=== PATIENT | male | born 1990 | race African-American/Black ===

== ENCOUNTER 2017-06-06 12:06 | Emergency (ER) | payer OTHER ==
[~2017-06-06] VITALS: Ht 182.9 cm; Wt 83.0 kg
--- NOTE | 2017-06-06 13:07 | Emergency Room Report ---
History of Present Illness General Chief Complaint: Upper Respiratory Illness Source: Patient Present Illness HPI 27-year-old male presents to the emergency department complaining of nasal congestion, rhinorrhea, intermittent cough, sore throat x2 days denies fevers or chills. Patient reports several children as ill contacts. Patient denies neck pain or stiffness reports frontal sinus headache described as increased pressure. Patient also reports 9/10 in severity right year tenderness and pain patient states onset was after taking bath last night. Patient denies discharge. Denies rash or abdominal pain Denies CP, Palpitations, LOC, AMS, dizziness, Changes in Vision, Sensation, paresthesias, or a sudden severe headache. Allergies: Coded Allergies: No Known Allergies (Unverified , 06/06/17) Patient History Past Medical History: see triage record Past Surgical History: none Pertinent Family History: none Immunizations: UTD Reviewed Nursing Documentation: PMH: Agreed, PSxH: Agreed Nursing Documentation-PMH Past Medical History: No Stated History Review of Systems All Other Systems: negative except mentioned in HPI Physical Exam Vital Signs Date Time Temp Pulse Resp B/P (MAP) Pulse Ox O2 Delivery O2 Flow Rate FiO2 06/06/17 12:32 98.8 88 16 120/70 98 Room Air Sp02 EP Interpretation: reviewed, normal General Appearance: no apparent distress, alert, GCS 15, non-toxic Head: normocephalic, atraumatic Eyes: bilateral eye normal inspection, bilateral eye PERRL ENT: hearing grossly normal, normal pharynx, no angioedema, normal voice, uvula midline, moist mucus membranes, nasal congestion, pharyngeal erythema, other - no tonsillar exudates, right extrnal ear tenderness with canal swelling and erythema, the TM is WNL. Neck: full range of motion, no meningismus, no bony tend, supple/symm/no masses Respiratory: chest non-tender, lungs clear, normal breath sounds, speaking full sentences Cardiovascular #1: regular rate, rhythm Gastrointestinal: non tender, soft Musculoskeletal: back normal, gait/station normal, normal range of motion Neurologic: alert, oriented x3, responsive, motor strength/tone normal, sensory intact, normal gait, speech normal Psychiatric: judgement/insight normal, memory normal, mood/affect normal Skin: normal color, no rash, warm/dry, well hydrated Lymphatic: no adenopathy Medical Decision Making PA Attestation Dr. Whittaker is my supervising Physician whom patient management has been discussed with. Diagnostic Impression: Primary Impression: Otitis externa of right ear Qualified Codes: H60.501 - Unspecified acute noninfective otitis externa, right ear Additional Impression: Cough in adult patient ER Course 27-year-old male presents to the emergency department complaining of nasal congestion, rhinorrhea, intermittent cough, sore throat x2 days denies fevers or chills. Patient reports several children as ill contacts. Patient denies neck pain or stiffness reports frontal sinus headache described as increased pressure. Patient also reports 9/10 in severity right year tenderness and pain patient states onset was after taking bath last night. Patient denies discharge. Denies rash or abdominal pain Denies CP, Palpitations, LOC, AMS, dizziness, Changes in Vision, Sensation, paresthesias, or a sudden severe headache. Ddx considered but are not limited to URI, pneumonia, PE, strep pharyngitis, meningitis. Vital signs: Pt. is afebrile, the remaining VS are WNL H&PE are most consistent with URI- no meningeal signs, oropharynx is not involved, no evidence of bacterial infection at this time. - Right otitis externa noted on PE. ORDERS: none required at this time, the diagnosis is clinical ED INTERVENTIONS: None required at this time. DISCHARGE: At this time pt. is stable for d/c to home. Will provide printed patient care instructions, and any necessary prescriptions. Care plan and follow up instructions have been discussed with the patient prior to discharge. Last Vital Signs Date Time Temp Pulse Resp B/P (MAP) Pulse Ox O2 Delivery O2 Flow Rate FiO2 06/06/17 12:32 98.8 88 16 120/70 98 Room Air Disposition: HOME, SELF-CARE Condition: Stable Scripts Ciprofloxacin Hcl/Dexameth (CIPRODEX OTIC SUSPENSION) 7.5 Ml Drops.susp 4 DROP RIGHT EAR TWICE A DAY for 7 Days, #7.5 ML Prov: Gertrude Davidson P.A. 06/06/17 Guaifenesin (Guaifenesin) 1,200 Mg Tab.er.12h 1200 MG PO Q12HR for 10 Days, #20 TAB Prov: Gertrude Davidson P.A. 06/06/17 Cetirizine Hcl* (ZYRTEC*) 10 Mg Tablet 10 MG ORAL DAILY for 30 Days, #30 TAB 0 Refills Prov: Gertrude Davidson 06/06/17 Codeine/Promethazine Hcl* (PROMETHAZINE-CODEINE SYRUP*) 118 Ml Syrup 5 ML ORAL Q6H Y for For Cough, #118 ML 0 Refills Prov: Gertrude Davidson 06/06/17 Referrals: Bhavesh VANCE,REFERRING (PCP) Patient Instructions: Otitis Externa, [id number], Upper Respiratory Infection , Adult Additional Instructions: Take medications as directed. Follow up with a Primary Care Provider in 3-5 days, even if your symptoms have resolved. --Please review list of primary care clinics, if you do not already have a primary care provider Return sooner to ED if new symptoms occur, or current symptoms become worse. Do not drink alcohol, drive, or operate heavy machinery while taking Cough Syrup as this may cause drowsiness. - Please note that this Emergency Department Report was dictated using [employer] end tester technology software, occasionally this can lead to erroneous entry secondary to interpretation by the dictation equipment. Gertrude Davidson Jun 06, 2017 13:07
[2017-06-06] MEDS ORDERED: CIPRODEX OTIC7.5 M1 RIGHT EAR (13:09)
[2017-06-06] MEDS ORDERED: ZYRTEC10 MG ORAL (13:09)
[2017-06-06] MEDS ORDERED: GUAIFENESIN1200 MG PO (13:09)
[2017-06-06] MEDS ORDERED: PROMETHAZINE-C118 M1 ORAL (13:09)
[2017-06-06 13:36] VITALS: BP 120/70
[2017-06-06 13:38] VITALS: BP 120/70
== END 2017-06-06 13:40 | disposition home or self-care (01) ==
LOC: EMR 12:40
DX: H60.91 Unspecified otitis externa, right ear (principal); R05 Cough; R09.81 Nasal congestion; J34.89 Other specified disorders of nose and nasal sinuses
CPT/HCPCS: 99284

== ENCOUNTER 2017-12-24 09:45 | Emergency (ER) | payer OTHER ==
[~2017-12-24] VITALS: Ht 182.9 cm; Wt 90.7 kg
[~2017-12-24 09:45] MED LIST: CIPRODEX OTIC7.5 M1 RIGHT EAR; GUAIFENESIN1200 MG PO; PROMETHAZINE-C118 M1 ORAL; ZYRTEC10 MG ORAL
[2017-12-24 09:58] VITALS: BP 114/73
[2017-12-24] MEDS ORDERED: PROMETHAZINE-C118 M1 ORAL (10:14)
[2017-12-24] MEDS ORDERED: ALBUTEROL SULF8.5 GM INH (10:14)
[2017-12-24] MEDS ORDERED: PREDNISONE20 MG ORAL (10:14)
[2017-12-24 10:25] VITALS: BP 114/73
--- NOTE | 2017-12-24 11:19 | Emergency Room Report ---
History of Present Illness General Chief Complaint: Upper Respiratory Illness Source: Patient Present Illness HPI 27-year-old male presents ED for evaluation. Patient presenting with cough, runny nose, sore throat and body aches 3 days. Pain is dull, 5 out of 10, nonradiating. Notes cough with greenish sputum. Denies fevers. Denies sick contacts or recent travel. Admits to smoking marijuana and cigarettes. Denies chest pain. Denies shortness of breath. No other aggravating relieving factors. Denies any other associated symptoms Allergies: Coded Allergies: No Known Allergies (Unverified , 06/06/17) Patient History Past Medical History: none Past Surgical History: none Pertinent Family History: none Social History: Reports: alcohol use, drug use; Denies: smoking Immunizations: UTD Reviewed Nursing Documentation: PMH: Agreed; PSxH: Agreed Nursing Documentation-PMH Past Medical History: No Stated History Review of Systems All Other Systems: negative except mentioned in HPI Physical Exam Vital Signs Date Time Temp Pulse Resp B/P (MAP) Pulse Ox O2 Delivery O2 Flow Rate FiO2 12/24/17 09:49 97.8 71 20 114/73 95 Room Air 97.9 Sp02 EP Interpretation: reviewed, normal General Appearance: no apparent distress, alert, GCS 15, non-toxic Head: normocephalic, atraumatic Eyes: bilateral eye normal inspection, bilateral eye PERRL ENT: hearing grossly normal, normal pharynx, no angioedema, normal voice Neck: full range of motion, supple/symm/no masses Respiratory: chest non-tender, lungs clear, normal breath sounds, speaking full sentences Cardiovascular #1: regular rate, rhythm, no edema Cardiovascular #2: 2+ carotid (R), 2+ carotid (L), 2+ radial (R), 2+ radial (L) , 2+ dorsalis pedis (R), 2+ dorsalis pedis (L) Gastrointestinal: normal bowel sounds, non tender, soft, non-distended, no guarding, no rebound Rectal: deferred Genitourinary: normal inspection, no CVA tenderness Musculoskeletal: back normal, gait/station normal, normal range of motion, non- tender Neurologic: alert, oriented x3, responsive, motor strength/tone normal, sensory intact, speech normal Psychiatric: judgement/insight normal, memory normal, mood/affect normal, no suicidal/homicidal ideation Reflexes: 3+ bicep (R), 3+ bicep (L), 3+ tricep (R), 3+ tricep (L), 3+ knee (R) , 3+ knee (L) Skin: normal color, no rash, warm/dry, well hydrated Lymphatic: no adenopathy Medical Decision Making Diagnostic Impression: Primary Impression: Bronchitis ER Course Hospital Course 27-year-old male presents to ED complaining of cough, runny nose congestion Differential diagnoses include: URI, pharyngitis, otitis media, asthma Clinical course Patient placed on stretcher. After initial history, physical exam reveals a male in no acute distress. Bilateral TM unremarkable. No pharyngeal erythema. No tonsillar exudates. No lymphadenopathy. lungs clear. abdomen soft. Clinical findings consistent with bronchitis. treatment is supportive. encourage smoking/marijuana cessation Diagnosis - bronchitis Stable and discharged home with Rx Albuterol, prednisone, promethazine/codeine. Instructed to followup with PMD. Return to ED if symptoms recur or worsen Last Vital Signs Date Time Temp Pulse Resp B/P (MAP) Pulse Ox O2 Delivery O2 Flow Rate FiO2 12/24/17 10:25 97.9 78 20 114/73 96 Room Air 97.9 Status: improved Disposition: HOME, SELF-CARE Condition: Improved Scripts Prednisone* (PREDNISONE*) 20 Mg Tablet 40 MG ORAL DAILY, #10 TAB Prov: FAYE MEI M.D. 12/24/17 Codeine/Promethazine Hcl* (PROMETHAZINE-CODEINE SYRUP*) 118 Ml Syrup 5 ML ORAL Q6H PRN for For Cough, #118 ML 0 Refills Prov: FAYE MEI M.D. 12/24/17 Albuterol Sulfate* (ALBUTEROL SULFATE MDI*) 8.5 Gm Hfa.aer.ad 2 PUFF INH Q6H, #1 EA 0 Refills Prov: FAYE MEI M.D. 12/24/17 Referrals: NON PHYSICIAN (PCP) Patient Instructions: Acute Bronchitis, [id number] FAYE MEI M.D. Dec 24, 2017 11:19
== END 2017-12-24 10:25 | disposition home or self-care (01) ==
LOC: EMR 10:10
DX: J40 Bronchitis, not specified as acute or chronic (principal)
CPT/HCPCS: 99284

== ENCOUNTER 2018-07-11 18:42 | Emergency (ER) | payer OTHER ==
[~2018-07-11] VITALS: Ht 185.4 cm; Wt 81.6 kg
[2018-07-11 18:42] VITALS: BP 144/84
[~2018-07-11 18:42] MED LIST changes: +ALBUTEROL SULF8.5 GM INH; +PREDNISONE20 MG ORAL
[2018-07-11] MEDS ORDERED: TRAMADOL HCL50 MG ORAL (18:46)
[2018-07-11] MEDS ORDERED: Ketorolac 30mg Inj IM ONE (19:00)
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
[2018-07-11] MEDS ORDERED: ROBAXIN500 MG PO (20:08)
[2018-07-11] MEDS ORDERED: LIDODERM700 M1 TOPIC (20:08)
[2018-07-11 20:27] VITALS: BP 122/72
[2018-07-11] MEDS ORDERED: Acetaminophen 500mg (ES) tab ORAL ONE (20:45)
[2018-07-11 20:50] VITALS: BP 122/72
== END 2018-07-11 20:50 | disposition home or self-care (01) ==
LOC: EDBD 18:42 → EMR 18:50
DX: S39.012A Strain of muscle, fascia and tendon of lower back, initial encounter (principal); V79.50XA Passenger on bus injured in collision with unspecified motor vehicles in traffic accident, initial encounter; Y92.410 Unspecified street and highway as the place of occurrence of the external cause; Z88.0 Allergy status to penicillin
CPT/HCPCS: 96372; 99283; J1885

== ENCOUNTER 2018-09-29 08:43 | Emergency (ER) | payer OTHER ==
[~2018-09-29] VITALS: Ht 175.3 cm; Wt 70.3 kg
[~2018-09-29 08:43] MED LIST changes: +LIDODERM700 M1 TOPIC; +ROBAXIN500 MG PO; +TRAMADOL HCL50 MG ORAL
[2018-09-29 09:01] VITALS: BP 128/78
--- NOTE | 2018-09-29 09:06 | NUR ---
ED Nurse Note: 28 years old male AAOx4 walked in to the ER from work c/o sore throat and throat pain 07/10. Per patient, he has had this symptoms for last 4 days but worsening up to today. Denied taking any medications including OTC. No wheezing, no fever noted but dry cough with clear sputum noted. Per patient, he has spited out clear or brown sputum at home for last 4 days. Remaining calm and resting while waiting for further assessment and intervention.
--- NOTE | 2018-09-29 10:03 | Emergency Room Report ---
History of Present Illness General Chief Complaint: Sore Throat Source: Patient, Medical Record Present Illness HPI Patient with 2-3 days of sore throat, cough, runny nose. States pain is 10/10 in throat. Had flu shot. Able to eat and drink but pain with swallowing. Feverish, but not documented. Also feels weak. Had taken both motrin and tramadol. Still has Tramadol. No rashes, chest pain, NVD, dysuria, headache. Tramadol taken for back and motrin. Allergies: Coded Allergies: No Known Allergies (Unverified , 09/29/18) Patient History Past Medical History: see triage record Social History: Denies: smoking Social History Narrative working tomorrow Reviewed Nursing Documentation: PMH: Agreed; PSxH: Agreed Nursing Documentation-PMH Hx Gastrointestinal Problems: Yes Review of Systems All Other Systems: negative except mentioned in HPI Physical Exam Vital Signs Date Time Temp Pulse Resp B/P (MAP) Pulse Ox O2 Delivery O2 Flow Rate FiO2 09/29/18 08:52 98.1 82 17 128/78 97 Room Air Sp02 EP Interpretation: reviewed, normal General Appearance: well appearing, no apparent distress, GCS 15 Head: normocephalic, atraumatic Eyes: bilateral eye PERRL, bilateral eye Scleral Injection ENT: no angioedema, normal voice, pharyngeal erythema Neck: full range of motion, supple Respiratory: lungs clear, normal breath sounds, no respiratory distress, speaking full sentences Cardiovascular #1: regular rate, rhythm Cardiovascular #2: 2+ radial (R) Gastrointestinal: normal inspection Musculoskeletal: digits/nails normal, gait/station normal, normal range of motion Neurologic: alert, oriented x3, normal gait, grossly normal Psychiatric: mood/affect normal Skin: no rash Medical Decision Making Diagnostic Impression: Primary Impression: Pharyngitis Qualified Codes: J02.9 - Acute pharyngitis, unspecified Additional Impressions: Drug-seeking behavior Upper respiratory infection Qualified Codes: J06.9 - Acute upper respiratory infection, unspecified ER Course Patient presents with URI and sore throat. DDX; strep, bronchitis, viral syndrome. Treatment with amox as appears like strep. Also given Sudaphed here. Patient insisting on having codeine. I stated Tramadol is stronger and I want him to take that. States what I have prescribed will not work. Angry and yelling that needs codeine. I asked that he try what I have prescribed, that if it does not work to return. No medical emergency at this time. Patient stable for outpatient observation and treatment. Last Vital Signs Date Time Temp Pulse Resp B/P (MAP) Pulse Ox O2 Delivery O2 Flow Rate FiO2 09/29/18 10:30 98.0 88 17 124/74 98 Room Air Status: improved Disposition: HOME, SELF-CARE Condition: Improved Scripts Dextromethorphan Hb/Doxylamine (ROBITUSSIN NIGHTTIME COUGH DM) 237 Ml Liquid 5 ML PO Q6HR, #60 ML Prov: Rm Heck MD 09/29/18 Chlorpheniramine Maleate (CHLOR-TRIMETON) 4 Mg Tablet 4 MG PO Q6HR PRN for conjestion, #14 TAB Prov: Rm Heck MD 09/29/18 Ibuprofen* (MOTRIN*) 600 Mg Tablet 600 MG ORAL Q8H PRN for For Pain, #20 TAB 0 Refills Prov: Rm Heck MD 09/29/18 Amoxicillin/Potassium Clav 500-125 Tablet* (AUGMENTIN 500-125 TABLET*) 1 Each Tablet 1 TAB ORAL THREE TIMES A DAY, #20 TAB Prov: Rm Heck MD 09/29/18 Referrals: Bhavesh VANCE,REFERRING (PCP) Rm Heck MD Sep 29, 2018 10:03
[2018-09-29] MEDS ORDERED: IBUPROFEN600 MG ORAL (10:04)
[2018-09-29] MEDS ORDERED: AUGMENTIN 500-1 EACH ORAL (10:04)
[2018-09-29] MEDS ORDERED: ROBITUSSIN NIG237 ML PO (10:13)
[2018-09-29] MEDS ORDERED: CHLOR-TRIMETON4 MG PO (10:13)
--- NOTE | 2018-09-29 10:13 | NUR ---
ED Nurse Note: Patient received discharge instruction after talking to MD and prescribed ATB and cough syrup for sore throat and congestion. Pt ambulated to be discharged in stable condition.
[2018-09-29] MEDS ORDERED: Pseudoephedrine 30mg tab ORAL ONE (10:15)
[2018-09-29 10:30] VITALS: BP 124/74
== END 2018-09-29 10:33 | disposition home or self-care (01) ==
LOC: EMR 09:35
DX: J02.9 Acute pharyngitis, unspecified (principal); Z76.5 Malingerer [conscious simulation]; J06.9 Acute upper respiratory infection, unspecified
CPT/HCPCS: 99283

== ENCOUNTER 2018-10-13 22:13 | Emergency (ER) | payer OTHER ==
[~2018-10-13] VITALS: Ht 182.9 cm; Wt 72.6 kg
[~2018-10-13 22:13] MED LIST changes: +AUGMENTIN 500-1 EACH ORAL; +CHLOR-TRIMETON4 MG PO; +IBUPROFEN600 MG ORAL; +ROBITUSSIN NIG237 ML PO
[2018-10-13 22:25] VITALS: BP 127/72
--- NOTE | 2018-10-13 22:53 | Emergency Room Report ---
History of Present Illness General Chief Complaint: Pain Source: Patient Present Illness HPI Is a 20-year-old male with no past medical history. He presents with chief complaint of fever, cough, lower back pain. He's his back pain is 20 out of 10. Subjective fever and chills. No nausea no vomiting. Cough is nonproductive in nature. No diarrhea. Nothing made it better. Any movement made it worse. Not anything for this. Onset for 1 day. Allergies: Coded Allergies: No Known Allergies (Unverified , 09/29/18) Patient History Past Medical History: see triage record, old chart reviewed Past Surgical History: none Pertinent Family History: none Social History: Denies: smoking Immunizations: other Reviewed Nursing Documentation: PMH: Agreed; PSxH: Agreed Nursing Documentation-PMH Past Medical History: No Stated History Hx Gastrointestinal Problems: Yes Review of Systems Constitutional: Reports: chills, fever, weakness Eye: Denies: eye pain, blurred vision ENT: Denies: ear pain, nose congestion, throat swelling Respiratory: Reports: cough; Denies: shortness of breath Cardiovascular: Denies: chest pain, palpitations Gastrointestinal: Denies: abdominal pain, diarrhea, nausea, vomiting Musculoskeletal: Reports: back pain; Denies: joint pain Skin: Denies: rash Neurological: Denies: headache, numbness Endocrine: Denies: increased thirst, increased urine Hematologic/Lymphatic: Denies: easy bruising All Other Systems: negative except mentioned in HPI Physical Exam Vital Signs Date Time Temp Pulse Resp B/P (MAP) Pulse Ox O2 Delivery O2 Flow Rate FiO2 10/13/18 22:20 99.3 93 22 127/72 98 Room Air vitals unremarkable Sp02 EP Interpretation: reviewed, normal General Appearance: well appearing, no apparent distress, alert Head: normocephalic, atraumatic Eyes: bilateral eye PERRL, bilateral eye EOMI ENT: hearing grossly normal, normal pharynx Neck: full range of motion, supple, no meningismus Respiratory: chest non-tender, lungs clear, normal breath sounds Cardiovascular #1: regular rate, rhythm, no murmur Gastrointestinal: normal bowel sounds, non tender, no mass, no organomegaly, no bruit, non-distended Musculoskeletal: back normal - Diffuse lower back tenderness, gait/station normal, normal range of motion Neurologic: alert, oriented x3 Psychiatric: mood/affect normal Skin: warm/dry Medical Decision Making Diagnostic Impression: Primary Impression: Influenza-like illness ER Course Patient with subjective fever, body pain, cough, nausea vomiting. This is influenza-like illness. Even though influenza swab was negative, we'll go ahead and treat. No evidence of an acute abdomen. No evidence of pneumonia. Patient keep asking for codeine cough medicine. I explained to patient that I do not prescribe that for cough. We'll discharge home. Lab Results Impression labs unremarkable Chest X-Ray Diagnostic Results Chest X-Ray Diagnostic Results : Chest X-Ray Ordered: Yes # of Views/Limited/Complete: 1 View Indication: Shortness of Breath EP Interpretation: Yes Interpretation: no consolidation, no effusion, no pneumothorax, no acute cardiopulmonary disease Impression: No acute disease Electronically Signed by: John Martinez MD Last Vital Signs Date Time Temp Pulse Resp B/P (MAP) Pulse Ox O2 Delivery O2 Flow Rate FiO2 10/13/18 22:25 99.3 70 22 127/72 98 Room Air Status: improved Disposition: HOME, SELF-CARE Condition: Stable Scripts Oseltamivir Phosphate (Tamiflu) 75 Mg Capsule 75 MG ORAL TWICE A DAY, #10 CAP Prov: John Martinez MD 10/14/18 Ibuprofen* (MOTRIN*) 600 Mg Tablet 600 MG ORAL THREE TIMES A DAY, #30 TAB 0 Refills Prov: John Martinez MD 10/14/18 Additional Instructions: Rest. Increase fluids. Follow-up with your doctor in 7 days. Return if worse. John Martinez MD Oct 13, 2018 22:53
[2018-10-13 23:00] LABS: BASOPHILS % (AUTO) 2.5 % (0.0-2.0); EOSINOPHILS % (AUTO) 0.7 % (0.0-3.0); HEMATOCRIT 41.9 % (42.0-52.0); HEMOGLOBIN 14.9 G/DL (14.2-18.0); LYMPHOCYTES % (AUTO) 10.8 % (20.0-45.0); MEAN CORPUSCULAR VOLUME 84 FL (80-99); MONOCYTES % (AUTO) 14.8 % (1.0-10.0); NEUTROPHILS % (AUTO) 71.2 % (45.0-75.0); PLATELET COUNT 243 K/UL (150-450); RED BLOOD COUNT 4.98 M/UL (4.70-6.10)
[2018-10-13] MEDS ORDERED: Ketorolac 30mg Inj IV ONE (23:00)
[2018-10-13 23:06] LABS: ANION GAP 11 mmol/L (5-15); BLOOD UREA NITROGEN 11 mg/dL (7-18); CALCIUM 9.9 MG/DL (8.5-10.1); CARBON DIOXIDE 25 MMOL/L (21-32); CHLORIDE 99 MMOL/L (98-107); CREATININE 1.3 MG/DL (0.55-1.30); POTASSIUM 3.6 MMOL/L (3.5-5.1); SODIUM 135 MMOL/L (136-145)
[2018-10-13 23:14] LABS: APPEARANCE,URINE CLEAR; BILIRUBIN, URINE NEGATIVE (NEGATIVE); COLOR,URINE PALE YELLOW; GLUCOSE, URINE (UA) NEGATIVE (NEGATIVE); KETONES,URINE 2+ (NEGATIVE); LEUKOCYTE ESTERASE ,URINE NEGATIVE (NEGATIVE); NITRITE,URINE NEGATIVE (NEGATIVE); PH,URINE 9 (4.5-8.0); UROBILINOGEN,URINE NORMAL MG/DL (0.0-1.0)
[2018-10-13] MEDS ORDERED: Albuterol ud Inhalation HHN ONE (23:15)
[2018-10-13] MEDS ORDERED: Morphine Sulfate 4mg/ml Inj (IV/IM USE ONLY) IVP ONE (23:15)
[2018-10-13 23:16] LABS: PROTEIN,URINE NEGATIVE (NEGATIVE)
[2018-10-13 23:58] VITALS: BP 125/73
[2018-10-14 00:20] VITALS: BP 122/72
[2018-10-14 00:21] VITALS: BP 122/72
[2018-10-14] MEDS ORDERED: TAMIFLU75 MG ORAL (00:21)
[2018-10-14] MEDS ORDERED: IBUPROFEN600 MG ORAL (00:21)
--- NOTE | 2018-10-14 11:47 | Diagnostic Imaging Report ---
Indication: Dyspnea Comparison: None A single view chest radiograph was obtained. Findings: Cardiomediastinal appearance is within normal limits for age. The lungs are clear. Pulmonary vascularity is appropriate. The diaphragmatic contour is smooth and costophrenic angles are sharp. No pleural effusions are identified. The bones are unremarkable. Impression: No acute findings
== END 2018-10-14 00:31 | disposition home or self-care (01) ==
LOC: EMR 23:25
DX: J11.1 Influenza due to unidentified influenza virus with other respiratory manifestations (principal)
CPT/HCPCS: 36415; 71045; 80048; 80307; 81001; 85025; 86710; 94640; 94664; 96361; 96374; 96375; 99284; J1885; J2270; J2405

== ENCOUNTER 2018-12-08 21:31 | Emergency (ER) | payer OTHER ==
[~2018-12-08] VITALS: Ht 182.9 cm; Wt 77.1 kg
[~2018-12-08 21:31] MED LIST changes: +TAMIFLU75 MG ORAL
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
[2018-12-08 21:58] VITALS: BP 116/69
[2018-12-08 22:45] VITALS: BP 114/67
--- NOTE | 2018-12-08 22:45 | NUR ---
ED Nurse Note: Pt cleared to be d/c per ERMD, pt discharge and aftercare instruction provided, suture done by ERMD, pt advised to follow up with pcp or return to ed if sxworsen or new sx develop, pt verbalized understanding and agrees with plan, left w/ all belongings, ambulatory w/ steady gait, resp even and unlabored on RA, airway intact, accompanied by girlfriend.
== END 2018-12-08 22:45 | disposition home or self-care (01) ==
LOC: EMR 21:52
DX: S01.511A Laceration without foreign body of lip, initial encounter (principal); Y04.0XXA Assault by unarmed brawl or fight, initial encounter; Y99.9 Unspecified external cause status
CPT/HCPCS: 12011; 99283; Z7502

== ENCOUNTER 2019-06-19 12:42 | Emergency (ER) | payer OTHER ==
[~2019-06-19] VITALS: Ht 180.3 cm; Wt 77.1 kg
[2019-06-19] MEDS ORDERED: NKM (12:51)
[2019-06-19 12:55] VITALS: BP 145/73
--- NOTE | 2019-06-19 12:55 | NUR ---
ED Nurse Note: Patient walked in to ER from home due to coughing, runny nose for 3 days. pt persistently coughing with barking sound. Patient alert and oriented x4 and ambulatory with steady gait. calm and cooperative. skin clean and intact. no cardiac or pulmonary distress noted at this time. no fever at this time.
--- NOTE | 2019-06-19 13:07 | Emergency Room Report ---
History of Present Illness General Chief Complaint: Flu Like Symptoms Source: Patient Present Illness HPI 29-year-old male with no significant past medical history here complaining of 4 days of sore throat, cough and congestion. Denies fever and chills. Denies abdominal pain nausea vomiting. Has not taken medication for symptom relief. Patient reports that he is spitting a lot of phlegm however the pain is clear. Denies any smoking history, marijuana use or vaping. Denies abdominal pain urinary symptoms. Rating the pain in his throat 5 out of 10 without addition. Complains of congestion and lots of mucus in his nasal canal. Denies recent travel. Denies wheezing, chest pain, palpitation, dizziness and headache. Allergies: Coded Allergies: No Known Allergies (Unverified , 09/29/18) Patient History Past Medical History: see triage record Past Surgical History: unable to obtain Pertinent Family History: none Immunizations: UTD Reviewed Nursing Documentation: PMH: Agreed; PSxH: Agreed Nursing Documentation-PMH Past Medical History: No Stated History Hx Gastrointestinal Problems: Yes Review of Systems All Other Systems: negative except mentioned in HPI Physical Exam Vital Signs Date Time Temp Pulse Resp B/P (MAP) Pulse Ox O2 Delivery O2 Flow Rate FiO2 06/19/19 12:48 98.2 65 19 145/73 (97) 97 Room Air Sp02 EP Interpretation: reviewed, normal General Appearance: no apparent distress, alert, GCS 15, non-toxic Head: normocephalic, atraumatic Eyes: bilateral eye normal inspection, bilateral eye PERRL ENT: hearing grossly normal, no angioedema, TMs + canals normal, uvula midline , tonsillar swelling, pharyngeal erythema Neck: full range of motion, supple, no meningismus, no carotid bruits, supple/ symm/no masses Respiratory: chest non-tender, lungs clear, normal breath sounds, no rhonchi, no respiratory distress, no wheezing, speaking full sentences Cardiovascular #1: regular rate, rhythm, no edema, no murmur Gastrointestinal: normal bowel sounds, non tender, soft, non-distended, no guarding, no rebound Rectal: deferred Genitourinary: no CVA tenderness Musculoskeletal: back normal, gait/station normal, normal range of motion, non- tender, no calf tenderness Neurologic: alert, oriented x3, responsive, motor strength/tone normal, sensory intact, speech normal Psychiatric: judgement/insight normal, memory normal, mood/affect normal, no suicidal/homicidal ideation Skin: no rash Lymphatic: no adenopathy Medical Decision Making PA Attestation All my diagnosis and treatment plans were reviewed ad discussed with my supervising physician Dr. Sandy Diagnostic Impression: Primary Impression: Pharyngitis ER Course 29-year-old male with no significant past medical history here complaining of 4 days of sore throat, cough and congestion. Denies fever and chills. Denies abdominal pain nausea vomiting. Has not taken medication for symptom relief. Patient reports that he is spitting a lot of phlegm however the pain is clear. Denies any smoking history, marijuana use or vaping. Denies abdominal pain urinary symptoms. Rating the pain in his throat 5 out of 10 without addition. Complains of congestion and lots of mucus in his nasal canal. Denies recent travel. Denies wheezing, chest pain, palpitation, dizziness and headache. Ddx considered but are not limited to: strep pharyngitis, URI, tonsillitis, peritonsillar abscess, influneza Vital signs: are WNL, pt. is afebrile H&PE are most consistent with: Pharyngitis patient is a ex smoker most likely bacterial ORDERS: Azithromycin, Phenergan, Flonase ED INTERVENTIONS: None required at this time. DISCHARGE: At this time pt. is stable for d/c to home. Will provide printed patient care instructions, and any necessary prescriptions. Care plan and follow up instructions have been discussed with the patient prior to discharge. I advised patient to take medication as directed and follow-up with your symptoms in the emergency room Last Vital Signs Date Time Temp Pulse Resp B/P (MAP) Pulse Ox O2 Delivery O2 Flow Rate FiO2 06/19/19 12:48 98.2 65 19 145/73 (97) 97 Room Air Disposition: HOME, SELF-CARE Condition: Stable Scripts Fluticasone Propionate (Flonase Allergy Relief) 9.9 Ml [place].susp 2 PUFF NS BID, #10 ML Prov: Maricel Wyman 06/19/19 Promethazine Hcl (PROMETHAZINE HCL*) 6.25 Mg/5 Ml Syrup 5 ML ORAL Q6H, #120 ML 0 Refills Prov: Maricel Wyman 06/19/19 Azithromycin* (ZITHROMAX*) 250 Mg Tablet 250 MG ORAL DAILY, #6 TAB 0 Refills Take two tables once daily for 1 day, then one tablet once daily for 4 days. Prov: Maricel yWman 06/19/19 Patient Instructions: Pharyngitis Additional Instructions: Take medication as directed follow-up with your primary care provider worsening symptoms return to the emergency room Maricel Wyman Jun 19, 2019 13:07
[2019-06-19] MEDS ORDERED: ZITHROMAX250 MG ORAL (13:09)
[2019-06-19] MEDS ORDERED: PROMETHAZI6.25 MG/1 ORAL (13:09)
[2019-06-19] MEDS ORDERED: FLONASE ALLERG9.9 ML NS (13:09)
[2019-06-19 13:19] VITALS: BP 145/73
--- NOTE | 2019-06-19 13:20 | NUR ---
ED Nurse Note: Pt cleared by health care Provider for discharge. DC instructions/prescription was given and explained to pt and verbalized understanding of teachings. All medical deviecs such as ID band removed. Pt is AAO x4, ambulatory and left with all personal belongings.
== END 2019-06-19 13:20 | disposition home or self-care (01) ==
LOC: EMR 13:08
DX: J02.9 Acute pharyngitis, unspecified (principal)
CPT/HCPCS: 99282

== ENCOUNTER 2019-06-21 11:21 | Emergency (ER) | payer OTHER ==
[~2019-06-21] VITALS: Ht 180.3 cm; Wt 79.4 kg
[~2019-06-21 11:21] MED LIST changes: +FLONASE ALLERG9.9 ML NS; +NKM; +PROMETHAZI6.25 MG/1 ORAL; +ZITHROMAX250 MG ORAL
[2019-06-21 11:30] VITALS: BP 121/79
--- NOTE | 2019-06-21 11:30 | NUR ---
ED Nurse Note: Patient walked in c/o flu like symptoms x 5 days. Pt presents with sore throat, headache and nasal congestion with pain rated at 10/10. Pt is A&O x4, V/S stable with no s/s of acute distress noted at this time. ERMD at bedside evaluating the pt.
--- NOTE | 2019-06-21 11:55 | NUR ---
ED Nurse Note: RT was contacted for breathing treatment.
[2019-06-21] MEDS ORDERED: Solu-MEDROL 125mg Inj IM ONE (12:00)
[2019-06-21] MEDS ORDERED: Ipratropium 0.02% Inh Soln 2.5ml UD HHN ONE (12:00)
[2019-06-21] MEDS ORDERED: Albuterol ud Inhalation HHN ONE ×2 (12:00→13:00)
--- NOTE | 2019-06-21 12:37 | Emergency Room Report ---
History of Present Illness General Chief Complaint: Flu Like Symptoms Source: Patient Present Illness HPI See 2 days ago and prescribed azithromycin, nasonex and phenergan cough syrup for pharyngitis. Now with wheezes, cough, occasional post-tussive vomiting and sore throat. Does not have an inhaler at this time. He has 2 more azithromycin left. He feels the medicines have not helped. This is not his worst asthma attack. He denies chest pain. The sore throat is slightly improved. No diarrhea or dysuria. No skin rashes. Patient complaining about throat pain of 10/10, sharp and aching nonradiating. [place] too ill to go to work today. 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 Reviewed Nursing Documentation: PMH: Agreed; PSxH: Agreed Nursing Documentation-PMH Hx Gastrointestinal Problems: Yes Review of Systems All Other Systems: negative except mentioned in HPI Physical Exam Vital Signs Date Time Temp Pulse Resp B/P (MAP) Pulse Ox O2 Delivery O2 Flow Rate FiO2 06/21/19 11:27 98.1 71 19 121/79 (93) 96 Room Air 06/21/19 12:11 21 Sp02 EP Interpretation: reviewed, normal General Appearance: well appearing, no apparent distress Head: normocephalic, atraumatic Eyes: bilateral eye normal inspection, bilateral eye PERRL, bilateral eye EOMI ENT: moist mucus membranes, pharyngeal erythema, other - no exudates Neck: supple, no meningismus Respiratory: chest non-tender, wheezing, expiration Cardiovascular #1: regular rate, rhythm Cardiovascular #2: 2+ radial (R) Gastrointestinal: normal bowel sounds, non tender Genitourinary: no CVA tenderness Musculoskeletal: digits/nails normal, gait/station normal Neurologic: oriented x3, grossly normal Psychiatric: mood/affect normal Skin: no rash, other - tattoos Medical Decision Making Diagnostic Impression: Primary Impression: Asthmatic bronchitis Qualified Codes: J45.41 - Moderate persistent asthma with (acute) exacerbation ER Course The patient presents with sore throat, wheezing and posttussive vomiting. The patient previously was treated with 3 doses of azithromycin along with cough syrup and Nasonex. Differential includes asthmatic bronchitis, pharyngitis, viral syndrome, bacterial infection. Breathing treatments are indicated. Due to the pulse oximetry and clinical findings x-ray is not indicated at this time. Suspicion for pneumonia is low. Treated with IM Solu-Medrol, albuterol and Atrovent. T. Still exp wheezes after 1st tx. Repeat Albuterol. Feels better and able to go home. Discussed treatment plan with patient. Advised to return if he is worse. Also advised to follow-up with his own doctor. Patient is stable for outpatient observation and treatment. Last Vital Signs Date Time Temp Pulse Resp B/P (MAP) Pulse Ox O2 Delivery O2 Flow Rate FiO2 06/21/19 14:01 98.0 80 19 132/68 99 Room Air 06/21/19 12:11 21 Status: improved Disposition: HOME, SELF-CARE Condition: Improved Scripts Albuterol Sulfate* (ALBUTEROL SULFATE MDI*) 8.5 Gm Hfa.aer.ad 2 PUFF INH Q6H for wheezing/cough, #1 EA 1 Refill Prov: Rm Heck MD 06/21/19 Dextromethorphan Hb/Doxylamine (ROBITUSSIN NIGHTTIME COUGH DM) 237 Ml Liquid 5 ML PO Q6HR, #90 ML Prov: Rm Heck MD 06/21/19 Prednisone* (PREDNISONE*) 20 Mg Tablet 40 MG ORAL DAILY, #10 TAB Prov: Rm Heck MD 06/21/19 Rm Heck MD Jun 21, 2019 12:37
[2019-06-21] MEDS ORDERED: PREDNISONE20 MG ORAL (12:40)
[2019-06-21] MEDS ORDERED: ROBITUSSIN NIG237 ML PO (13:47)
[2019-06-21] MEDS ORDERED: ALBUTEROL SULF8.5 GM INH (13:47)
[2019-06-21 14:01] VITALS: BP 132/68
--- NOTE | 2019-06-21 14:01 | NUR ---
ER DISCHARGE NOTE: Patient is cleared to be discharged per ERMD, pt is aox4, on room air, with stable vital signs. pt was given dc and prescription instructions, pt was able to verbalize understanding, pt id band removed. pt is able to ambulate with steady gait. pt took all belongings.
== END 2019-06-21 14:01 | disposition home or self-care (01) ==
LOC: EMR 12:00
DX: J45.41 Moderate persistent asthma with (acute) exacerbation (principal)
CPT/HCPCS: 94640; 94664; 96372; J2930; Z7502; 99284

== ENCOUNTER 2019-09-07 18:31 | Emergency (ER) | payer OTHER ==
[~2019-09-07] VITALS: Ht 185.4 cm; Wt 81.6 kg
[2019-09-07 18:55] VITALS: BP 107/68
--- NOTE | 2019-09-07 19:57 | Emergency Room Report ---
History of Present Illness General Chief Complaint: Upper Respiratory Illness Source: Patient Present Illness HPI 29-year-old male with history of marijuana smoke, asthma, here complaining of 4 weeks of cough and congestion with phlegm production. Patient complains of intermittent fever and chills. Denies sore throat and earache at this time. Has been taking hmrx-xhj-hllquaj cough medication with minimal relief. Complains of chest pain posttussive, denies pain radiation, shortness of breath , palpitation, abdominal pain, diarrhea and vomiting however does complain of minimal nausea. Reports that he ask his primary care physician to write him a prescription for sublingual Zofran however he was out of town and told him to come to the emergency room with a prescription. Denies urinary symptoms, tobacco smoke, alcohol intake. Denies recent travel and sick contact. Patient is sitting comfortably with stable vital signs. Patient also complains of chronic neck pain that he usually uses muscle relaxant for reports that has been taking Motrin with minimal relief. Denies any new injury, tingling and numbness. Allergies: Coded Allergies: No Known Allergies (Unverified , 09/29/18) Patient History Past Medical History: see triage record Past Surgical History: none Pertinent Family History: none Social History: Reports: drug use - marijuana Immunizations: UTD Reviewed Nursing Documentation: PMH: Agreed; PSxH: Agreed Nursing Documentation-PMH Hx Gastrointestinal Problems: Yes Review of Systems All Other Systems: negative except mentioned in HPI Physical Exam Vital Signs Date Time Temp Pulse Resp B/P (MAP) Pulse Ox O2 Delivery O2 Flow Rate FiO2 09/07/19 18:38 98.4 78 20 132/84 (100) 96 Room Air 09/07/19 18:55 99 Sp02 EP Interpretation: reviewed, normal General Appearance: no apparent distress, alert, GCS 15, non-toxic Head: normocephalic, atraumatic Eyes: bilateral eye normal inspection, bilateral eye PERRL ENT: hearing grossly normal, normal pharynx, no angioedema, normal voice Neck: full range of motion, no meningismus, supple/symm/no masses Respiratory: chest non-tender, no rhonchi, no respiratory distress, no retraction, no accessory muscle use, no wheezing, crackles - Left lower and upper Cardiovascular #1: regular rate, rhythm, no edema, no murmur Cardiovascular #2: 2+ carotid (R), 2+ carotid (L), 2+ radial (R), 2+ radial (L) Gastrointestinal: normal bowel sounds, non tender, soft, non-distended, no guarding, no rebound Rectal: deferred Genitourinary: no CVA tenderness Musculoskeletal: back normal, decreased range of motion, normal range of motion , no calf tenderness Neurologic: alert, motor strength/tone normal, 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 Whittaker Diagnostic Impression: Primary Impression: Atypical pneumonia Additional Impression: Nausea ER Course 29-year-old male with history of marijuana smoke, asthma, here complaining of 4 weeks of cough and congestion with phlegm production. Patient complains of intermittent fever and chills. Denies sore throat and earache at this time. Has been taking zuad-fwa-amqshwb cough medication with minimal relief. Complains of chest pain posttussive, denies pain radiation, shortness of breath , palpitation, abdominal pain, diarrhea and vomiting however does complain of minimal nausea. Reports that he ask his primary care physician to write him a prescription for sublingual Zofran however he was out of town and told him to come to the emergency room with a prescription. Denies urinary symptoms, tobacco smoke, alcohol intake. Denies recent travel and sick contact. Patient is sitting comfortably with stable vital signs. Patient also complains of chronic neck pain that he usually uses muscle relaxant for reports that has been taking Motrin with minimal relief. Denies any new injury, tingling and numbness. Ddx considered but are not limited to: bronchitis, PNA, URI viral, bacterial bronchitis , atypical pneumonia Vital signs: are WNL, pt. is afebrile H&PE are most consistent with: Atypical pneumonia, nausea secondary to marijuana use, chronic neck pain ORDERS: Chest x-ray, Phenergan, azithromycin, Medrol Dosepak, Zofran, lidocaine cream ED INTERVENTIONS: None required at this time. DISCHARGE: At this time pt. is stable for d/c to home. Will provide printed patient care instructions, and any necessary prescriptions. Care plan and follow up instructions have been discussed with the patient prior to discharge. Patient to follow-up with her primary care provider, if worsening symptoms return to the emergency room also regarding chronic pain further imaging may be needed but no x-rays needed today as patient did not fall or injure himself. Return to the emergency room if worsening symptoms Chest X-Ray Diagnostic Results Chest X-Ray Diagnostic Results : Chest X-Ray Ordered: Yes # of Views/Limited/Complete: 1 View Indication: Chest Pain EP Interpretation: Yes ARVIND Xray: Interpretation reviewed, by supervising MD, and agrees with findings. Interpretation: no consolidation, no effusion, no pneumothorax Impression: No acute disease Electronically Signed by: Maricel Powell PA-C Last Vital Signs Date Time Temp Pulse Resp B/P (MAP) Pulse Ox O2 Delivery O2 Flow Rate FiO2 09/07/19 18:55 98.7 76 16 107/68 99 Room Air 09/07/19 18:55 99 Disposition: HOME, SELF-CARE Condition: Stable Scripts Lidocaine Hcl (LIDOCAINE HCL) 28.35 Gm Cream..g. 2 GM TP TID, #28 GM Prov: Maricel Wyman 09/07/19 Ondansetron (Zofran) 4 Mg Tablet 4 MG SL Q6H PRN for Nausea & Vomiting, #10 TAB Prov: Maricel Wyman 09/07/19 Promethazine Hcl (PROMETHAZINE HCL*) 6.25 Mg/5 Ml Syrup 5 ML ORAL Q6H, #120 ML 0 Refills Prov: Maricel Wyman 09/07/19 Methylprednisolone (Methylprednisolone*) 4MG Dspk 4 MG ORAL DIRECTED for 6 Days, #21 EA 0 Refills Day 1: Two tablets before breakfast, one after lunch, one after dinner, and two at bedtime. If started late in the day, take all six tablets at once or divide into two or three doses, unless otherwise directed by prescriber. Day 2: One tablet before breakfast, one after lunch, one after dinner, and two at bedtime Day 3: One tablet before breakfast, one after lunch, one after dinner, and one at bedtime Day 4: One tablet before breakfast, one after lunch, and one at bedtime Day 5: One tablet before breakfast and one at bedtime Day 6: One tablet before breakfast Prov: Maricel Wyman/8/19 Azithromycin* (ZITHROMAX*) 250 Mg Tablet 250 MG ORAL DAILY, #6 TAB 0 Refills Take two tables once daily for 1 day, then one tablet once daily for 4 days. Prov: Maricle Wyman 09/07/19 Referrals: NON PHYSICIAN (PCP) Patient Instructions: Upper Respiratory Infection, Adult Additional Instructions: Take medication as directed, follow-up with your primary care physician, if worsening symptoms return to the emergency room Maricel Wyman Sep 07, 2019 19:56
--- NOTE | 2019-09-07 19:57 | Diagnostic Imaging Report ---
Indication: Cough Technique: One view of the chest Comparison: 10/13/2018 Findings: Lungs and pleural spaces are clear. Heart size is normal. Is no significant interim change Impression: No acute process This agrees with the preliminary interpretation provided overnight by [facility] teleradiology service.
[2019-09-07] MEDS ORDERED: ZOFRAN4 M1 SL (19:58)
[2019-09-07] MEDS ORDERED: ZITHROMAX250 MG ORAL (19:58)
[2019-09-07] MEDS ORDERED: MEDROL DOSEPAK4 MG ORAL (19:58)
[2019-09-07] MEDS ORDERED: PROMETHAZI6.25 MG/1 ORAL (19:58)
[2019-09-07] MEDS ORDERED: LIDOCAINE HC28.35 GM TP (20:04)
[2019-09-07 20:10] VITALS: BP 107/68
== END 2019-09-07 20:10 | disposition home or self-care (01) ==
LOC: EMR 19:00
DX: J18.9 Pneumonia, unspecified organism (principal); R11.0 Nausea; G89.29 Other chronic pain
CPT/HCPCS: 71045; Z7502; 99283

== ENCOUNTER 2019-11-23 19:23 | Emergency (ER) | payer OTHER ==
[~2019-11-23] VITALS: Ht 182.9 cm; Wt 81.6 kg
[~2019-11-23 19:23] MED LIST changes: +CYCLOBENZAPRINE10 MG ORAL; +IBU800 MG PO; +LIDOCAINE HC28.35 GM TP; +MEDROL DOSEPAK4 MG ORAL; +ROBAXIN-750750 MG PO; +VOLTAREN100 G1 TP; +ZOFRAN4 M1 SL
[2019-11-23] MEDS ORDERED: Metoclopramide 10mg/2ml Inj IVP ONE (19:45)
[2019-11-23] MEDS ORDERED: DiphenhydrAMINE 50mg/ml Inj IVP ONE (19:45)
[2019-11-23] MEDS ORDERED: Morphine Sulfate 4mg/ml Inj (IV USE ONLY) IVP ONE ×2 (19:45→22:45)
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
[2019-11-23] MEDS ORDERED: HYDROmorphone 1mg/ml Carpuject IVP ONE (20:00)
[2019-11-23 20:04] LABS: BASOPHILS % (AUTO) 3.5 % (0.0-2.0); EOSINOPHILS % (AUTO) 0.2 % (0.0-3.0); HEMATOCRIT 47.1 % (42.0-52.0); HEMOGLOBIN 16.1 G/DL (14.2-18.0); LYMPHOCYTES % (AUTO) 19.1 % (20.0-45.0); MEAN CORPUSCULAR VOLUME 87 FL (80-99); MONOCYTES % (AUTO) 9.8 % (1.0-10.0); NEUTROPHILS % (AUTO) 67.4 % (45.0-75.0); PLATELET COUNT 301 K/UL (150-450); RED BLOOD COUNT 5.39 M/UL (4.70-6.10); RED CELL DISTRIBUTION WIDTH 12.8 % (11.6-14.8); WHITE BLOOD COUNT 13.6 K/UL (4.8-10.8)
[2019-11-23 20:09] LABS: ANION GAP 19 mmol/L (5-15); BLOOD UREA NITROGEN 21 mg/dL (7-18); CALCIUM 10.2 MG/DL (8.5-10.1); CARBON DIOXIDE 20 MMOL/L (21-32); CHLORIDE 104 MMOL/L (98-107); CREATININE 1.3 MG/DL (0.55-1.30); POTASSIUM 4.2 MMOL/L (3.5-5.1); SODIUM 143 MMOL/L (136-145)
[2019-11-23 20:13] LABS: ALANINE AMINOTRANSFERASE 74 U/L (12-78); ALBUMIN 4.9 G/DL (3.4-5.0); ALBUMIN/GLOBULIN RATIO 1.2 (1.0-2.7); ALKALINE PHOSPHATASE 88 U/L (46-116); ASPARTATE AMINO TRANSFERASE 53 U/L (15-37); BILIRUBIN,TOTAL 0.8 MG/DL (0.2-1.0); CREATINE KINASE 325 U/L (26-308)
--- NOTE | 2019-11-23 20:15 | NUR ---
ED Nurse Note: Recieved pt from home, here with c/o severe abdominal pain with nausea and vomiting for 1 day, pt wheeled in by wheelchair, yelling, srying, and screaming very loud that he has pain, pt immediately gowned and placed on cardiac monitoring, MD at bedside, pt denies cp, no sob or labored breathign noted, will resume care as ordered and closely monitor.
[2019-11-23 21:00] VITALS: BP 35/61
[2019-11-23] MEDS ORDERED: Ketamine HCl 50mg/ml 1ml Syr IV ONE (21:15)
--- NOTE | 2019-11-23 22:00 | NUR ---
ED Nurse Note: Pt labs done, meds given for pain not effective, pt continues to yell and scream in bed, moving all about due to sharp abdominal pain at 10/10, no emesis but c/o nausea, v/s stable, IV patent with fluids infusing, no cp, no sob, will continue to closely monitor and resume care as ordered with close monitoring.
[2019-11-23] MEDS ORDERED: Omnipaque-300 100ml vial INJ PRN (22:30)
[2019-11-23] MEDS ORDERED: Mylanta II UD 30ml ORAL ONE (22:30)
[2019-11-23] MEDS ORDERED: Lidocaine 2% Visc 15ml soln ORAL ONE (22:30)
[2019-11-23 23:00] VITALS: BP 118/71
[2019-11-23 23:23] LABS: APPEARANCE,URINE CLEAR; BILIRUBIN, URINE NEGATIVE (NEGATIVE); COLOR,URINE PALE YELLOW; GLUCOSE, URINE (UA) NEGATIVE (NEGATIVE); KETONES,URINE NEGATIVE (NEGATIVE); LEUKOCYTE ESTERASE ,URINE NEGATIVE (NEGATIVE); NITRITE,URINE NEGATIVE (NEGATIVE); PH,URINE 8 (4.5-8.0); PROTEIN,URINE NEGATIVE (NEGATIVE); UROBILINOGEN,URINE NORMAL MG/DL (0.0-1.0)
[2019-11-24] VITALS: BP 122/58
--- NOTE | 2019-11-24 | Diagnostic Imaging Report ---
Indication: Abdominal pain severe for one hour in the mid abdomen. Nausea. Technique: Spiral acquisitions obtained through the abdomen and pelvis. No oral contrast utilized, per emergency room physician request there is No IV contrast utilized, per referring physician request.. Multiplanar reconstructions were generated. Total dose length product 323 mGycm. CTDIvol(s) 6 mGy. Dose reduction achieved using automated exposure control Comparison: None Findings: The appendix is normal. No evidence of diverticulosis or diverticulitis. No small bowel distention. No free or loculated intraperitoneal gas or fluid is evident. The distal esophagus, stomach, duodenum are unremarkable. Lack of IV contrast limits assessment of the solid organs. The liver, gallbladder, bile ducts, pancreas, spleen, adrenals, kidneys are all unremarkable. No pelvic mass or adenopathy. No retroperitoneal or mesenteric mass or adenopathy. There is a 6 mm subpleural nodule in the anterolateral left costophrenic sulcus. There are atelectatic changes at both lung bases. The bones are unremarkable. Impression: No acute process This agrees with the preliminary interpretation provided overnight by [facility] teleradiology service. 6 mm left lung base nodule. Recommend follow-up CT scan in 6-12 months. This finding is not described on the [facility] preliminary report, was phoned to Dr. Valdovinos in the emergency room at the time of interpretation The CT scanner at [facility] is accredited by the [employer] and the scans are performed using protocols designed to limit radiation exposure to as low as reasonably achievable to attain images of sufficient resolution adequate for diagnostic evaluation.
--- NOTE | 2019-11-24 00:15 | NUR ---
ER DISCHARGE NOTE: Patient is cleared to be discharged per ERMD, pt is aox4, on room air, with stable vital signs. pt was given dc and prescription instructions, pt was able to verbalize understanding, pt id band and iv site removed without complications. pt is able to ambulate with steady gait. pt took all belongings.
[2019-11-24] MEDS ORDERED: ZOFRAN ODT8 MG ORAL (00:17)
[2019-11-24 00:30] VITALS: BP 118/71
--- NOTE | 2019-11-24 09:28 | Diagnostic Imaging Report ---
Indication: Chest pain Technique: One view of the chest Comparison: 09/07/2019 Findings: Lungs and pleural spaces are clear. Heart size is normal. No significant interim change Impression: No acute process
--- NOTE | 2019-11-24 09:41 | Diagnostic Imaging Report ---
Indication: Abdominal pain Technique: Supine view of the abdomen Comparison: none Findings: Bowel gas pattern is unremarkable. No unusual masses or calcifications. Impression: No acute process
== END 2019-11-24 00:30 | disposition home or self-care (01) ==
LOC: EMR 19:45
DX: R10.84 Generalized abdominal pain (principal); D72.829 Elevated white blood cell count, unspecified; R11.15 Cyclical vomiting syndrome unrelated to migraine
CPT/HCPCS: 36415; 71045; 74018; 74176; 80053; 80307; 81003; 82550; 83690; 85025; 85610; 85730; 93005; 96361; 96374; 96375; 96376; G0480; J1170; J1200; J2270; J2405; J2765; J7030; S0028; Z7502; 99284

== ENCOUNTER 2020-03-07 09:14 | Emergency (ER) | payer OTHER ==
[~2020-03-07] VITALS: Ht 182.9 cm; Wt 81.6 kg
[~2020-03-07 09:14] MED LIST changes: +ZOFRAN ODT8 MG ORAL
--- NOTE | 2020-03-07 09:25 | NUR ---
ED Nurse Note: Pt walked into ED w/ abdominal pain since this morning 0300. Pt has history of gastritis and states this happens occassionally. Stomach is bloated. He has nausea and diarrhea since this morning. Pt is set up on monitor.
[2020-03-07 09:27] VITALS: BP 125/67
--- NOTE | 2020-03-07 09:43 | NUR ---
ED Nurse Note: Blood and urine sent to lab.
[2020-03-07] MEDS ORDERED: Ketorolac 30mg Inj IV ONE (09:45)
[2020-03-07] MEDS ORDERED: Morphine Sulfate 4mg/ml Inj (IV USE ONLY) IVP ONE ×2 (09:45→10:30)
--- NOTE | 2020-03-07 09:50 | Emergency Room Report ---
History of Present Illness General Chief Complaint: Abdominal Pain Source: Patient, Medical Record Present Illness HPI 29-year-old male presents for abdominal pain. Started yesterday. Epigastric, sharp, 8 out of 10, nonradiating. Notes nausea and vomiting. States he was drinking alcohol last night. Denies fevers or chills. Denies drug use. Denies sick contacts or recent travel. No other aggravating relieving factors. Denies any other associated symptoms Allergies: Coded Allergies: No Known Allergies (Unverified , 09/29/19) COVID-19 Screening Contact w/high risk pt: No Recent Travel to affected area: No Experienced COVID-19 symptoms?: No COVID-19 Testing performed [employer]: No Patient History Past Medical History: GERD Past Surgical History: none Pertinent Family History: none Social History: Reports: alcohol use; Denies: smoking, drug use Immunizations: UTD Reviewed Nursing Documentation: PMH: Agreed; PSxH: Agreed Nursing Documentation-PMH Past Medical History: No History, Except For Hx Gastrointestinal Problems: Yes - gastritis Review of Systems All Other Systems: negative except mentioned in HPI Physical Exam Vital Signs Date Time Temp Pulse Resp B/P (MAP) Pulse Ox O2 Delivery O2 Flow Rate FiO2 03/07/20 09:17 99.0 56 20 128/69 (88) 98 Room Air 03/07/20 09:27 98 Sp02 EP Interpretation: reviewed, normal General Appearance: no apparent distress, alert, GCS 15, non-toxic Head: normocephalic, atraumatic Eyes: bilateral eye normal inspection, bilateral eye PERRL ENT: hearing grossly normal, normal pharynx, no angioedema, normal voice Neck: full range of motion, supple/symm/no masses Respiratory: chest non-tender, lungs clear, normal breath sounds, speaking full sentences Cardiovascular #1: regular rate, rhythm, no edema Cardiovascular #2: 2+ carotid (R), 2+ carotid (L), 2+ radial (R), 2+ radial (L) , 2+ dorsalis pedis (R), 2+ dorsalis pedis (L) Gastrointestinal: normal bowel sounds, soft, non-distended, no guarding, no rebound, tenderness - epigastric Rectal: deferred Genitourinary: normal inspection, no CVA tenderness Musculoskeletal: back normal, normal range of motion, gait/station normal, non- tender Neurologic: alert, motor strength/tone normal, oriented x3, sensory intact, responsive, speech normal Psychiatric: judgement/insight normal, memory normal, mood/affect normal, no suicidal/homicidal ideation Reflexes: 3+ bicep (R), 3+ bicep (L), 3+ tricep (R), 3+ tricep (L), 3+ knee (R) , 3+ knee (L) Skin: no rash Lymphatic: no adenopathy Medical Decision Making Diagnostic Impression: Primary Impression: Gastritis Qualified Codes: K29.00 - Acute gastritis without bleeding ER Course Hospital Course 29-year-old M presents to ED with epigastric pain with N/V. differential diagnosis: gastritis, SBO, cholecystits Clinical course Patient placed on stretcher. On alarm security or surveillance monitor. After initial history and physical I ordered labs, IV fluids, pepcid, zofran, pain meds Labs - no leukocytosis, no electrolyte abnormalities, LFTs normal, UDS + THC Upon reassessment, patient states pain has improved. findings consistent with gastritis I discussed findings with patient. Safe for discharge for close outpatient follow-up. Does not have a PMD. I will provide referrals I feel this is a highly complex case requiring extensive working including EKG/ Rhythm strip, Xray/CT/US, Blood/urine lab work, repeat exams while in ED, and administration of strong opiates/narcotics for pain control, admission to hospital or close patient follow up. Diagnosis - gastritis Stable and discharged to home with prescriptions for pepcid, zofran. Followup with PMD. Return to ED if symptoms recur or worsen Labs Test 03/07/20 09:39 White Blood Count 11.8 K/UL (4.8-10.8) Red Blood Count 5.17 M/UL (4.70-6.10) Hemoglobin 15.2 G/DL (14.2-18.0) Hematocrit 43.0 % (42.0-52.0) Mean Corpuscular Volume 83 FL (80-99) Mean Corpuscular Hemoglobin 29.5 PG (27.0-31.0) Mean Corpuscular Hemoglobin Concent 35.4 G/DL (32.0-36.0) Red Cell Distribution Width 11.6 % (11.6-14.8) Platelet Count 298 K/UL (150-450) Mean Platelet Volume 6.1 FL (6.5-10.1) Neutrophils (%) (Auto) 80.0 % (45.0-75.0) Lymphocytes (%) (Auto) 13.9 % (20.0-45.0) Monocytes (%) (Auto) 5.1 % (1.0-10.0) Eosinophils (%) (Auto) 0.0 % (0.0-3.0) Basophils (%) (Auto) 1.0 % (0.0-2.0) Urine Color Pale yellow Urine Appearance Clear Urine pH 6 (4.5-8.0) Urine Specific [place] 1.020 (1.005-1.035) Urine Protein 3+ (NEGATIVE) Urine Glucose (UA) Negative (NEGATIVE) Urine Ketones 2+ (NEGATIVE) Urine Blood 2+ (NEGATIVE) Urine Nitrite Negative (NEGATIVE) Urine Bilirubin Negative (NEGATIVE) Urine Urobilinogen Normal MG/DL (0.0-1.0) Urine Leukocyte Esterase Negative (NEGATIVE) Urine RBC 2-4 /HPF (0 - 0) Urine WBC 0 /HPF (0 - 0) Urine Squamous Epithelial Cells Occasional /LPF Urine Bacteria Occasional /HPF (NONE) Urine Mucus Moderate /LPF (NONE/OCC) Sodium Level 139 MMOL/L (136-145) Potassium Level 4.1 MMOL/L (3.5-5.1) Chloride Level 99 MMOL/L (98-107) Carbon Dioxide Level 25 MMOL/L (21-32) Anion Gap 15 mmol/L (5-15) Blood Urea Nitrogen 20 mg/dL (7-18) Creatinine 1.5 MG/DL (0.55-1.30) Estimat Glomerular Filtration Rate > 60 mL/min (>60) Glucose Level 151 MG/DL (74-106) Calcium Level 9.7 MG/DL (8.5-10.1) Total Bilirubin 0.9 MG/DL (0.2-1.0) Aspartate Amino Transf (AST/SGOT) 21 U/L (15-37) Alanine Aminotransferase (ALT/SGPT) 46 U/L (12-78) Alkaline Phosphatase 91 U/L (46-116) Total Protein 9.2 G/DL (6.4-8.2) Albumin 5.0 G/DL (3.4-5.0) Globulin 4.2 g/dL Albumin/Globulin Ratio 1.2 (1.0-2.7) Lipase 80 U/L (73-393) Urine Opiates Screen Negative (NEGATIVE) Urine Barbiturates Screen Negative (NEGATIVE) Phencyclidine (PCP) Screen Negative (NEGATIVE) Urine Amphetamines Screen Negative (NEGATIVE) Urine Benzodiazepines Screen Negative (NEGATIVE) Urine Cocaine Screen Negative (NEGATIVE) Urine Marijuana (THC) Screen Positive (NEGATIVE) Last Vital Signs Date Time Temp Pulse Resp B/P (MAP) Pulse Ox O2 Delivery O2 Flow Rate FiO2 03/07/20 09:27 99.0 55 18 125/67 98 Room Air 03/07/20 09:27 98 Status: improved Disposition: HOME, SELF-CARE Condition: Stable Scripts Famotidine* (Pepcid 20mg tablet*) 20 Mg Tablet 20 MG ORAL DAILY, #30 TAB 0 Refills Prov: Onur Gomez MD 03/07/20 Ondansetron Odt* (ZOFRAN ODT*) 4 Mg Tab.rapdis 4 MG BC EVERY 6 HOURS PRN for Nausea & Vomiting, #20 TAB 0 Refills Prov: Onur Gomez MD 03/07/20 Referrals: NON PHYSICIAN (PCP) Onur Gomez MD Mar 07, 2020 09:50
[2020-03-07 10:12] LABS: HEMOGLOBIN 15.2 G/DL (14.2-18.0); LYMPHOCYTES % (AUTO) 13.9 % (20.0-45.0); MEAN CORPUSCULAR VOLUME 83 FL (80-99); MONOCYTES % (AUTO) 5.1 % (1.0-10.0); PLATELET COUNT 298 K/UL (150-450); RED BLOOD COUNT 5.17 M/UL (4.70-6.10); RED CELL DISTRIBUTION WIDTH 11.6 % (11.6-14.8); WHITE BLOOD COUNT 11.8 K/UL (4.8-10.8)
[2020-03-07 10:13] LABS: ANION GAP 15 mmol/L (5-15); BLOOD UREA NITROGEN 20 mg/dL (7-18); CALCIUM 9.7 MG/DL (8.5-10.1); CARBON DIOXIDE 25 MMOL/L (21-32); CHLORIDE 99 MMOL/L (98-107); CREATININE 1.5 MG/DL (0.55-1.30); POTASSIUM 4.1 MMOL/L (3.5-5.1); SODIUM 139 MMOL/L (136-145)
[2020-03-07 10:14] LABS: APPEARANCE,URINE CLEAR; BILIRUBIN, URINE NEGATIVE (NEGATIVE); COLOR,URINE PALE YELLOW; GLUCOSE, URINE (UA) NEGATIVE (NEGATIVE); KETONES,URINE 2+ (NEGATIVE); LEUKOCYTE ESTERASE ,URINE NEGATIVE (NEGATIVE); NITRITE,URINE NEGATIVE (NEGATIVE); PH,URINE 6 (4.5-8.0); PROTEIN,URINE 3+ (NEGATIVE); UROBILINOGEN,URINE NORMAL MG/DL (0.0-1.0)
[2020-03-07 10:19] LABS: ALANINE AMINOTRANSFERASE 46 U/L (12-78); ALBUMIN/GLOBULIN RATIO 1.2 (1.0-2.7); ALKALINE PHOSPHATASE 91 U/L (46-116); ASPARTATE AMINO TRANSFERASE 21 U/L (15-37); BILIRUBIN,TOTAL 0.9 MG/DL (0.2-1.0)
--- NOTE | 2020-03-07 10:20 | NUR ---
ED Nurse Note: ERMD notified that pt pain back up to 10. Nausea present as well.
[2020-03-07] MEDS ORDERED: Pantoprazole Inj IVP ONE (10:30)
[2020-03-07] MEDS ORDERED: ONDANSETRON ODT4 MG BC (11:04)
[2020-03-07] MEDS ORDERED: FAMOTIDINE20 MG ORAL (11:04)
[2020-03-07 11:15] VITALS: BP 118/70
== END 2020-03-07 11:15 | disposition home or self-care (01) ==
LOC: EMR 09:29
DX: K29.00 Acute gastritis without bleeding (principal); K21.9 Gastro-esophageal reflux disease without esophagitis
CPT/HCPCS: 36415; 80053; 80307; 81003; 83690; 85025; 96361; 96374; 96375; 96376; J1885; J2270; J2405; J7030; S0028; S0164; Z7502; 99284